=== PATIENT | male | born 1955 | race American Indian/Alaskan Native ===

== ENCOUNTER 2016-07-28 23:20 | Emergency (ER) | payer SELFPAY ==
[2016-07-29] MEDS ORDERED: BOOSTRIX IM ONE (05:27)
--- NOTE | 2016-07-29 05:31 | Emergency Department Report ---
HPI - General Chief Complaint: Puncture Wound Time Seen by Provider: 07/29/16 05:11 - HPI HPI: Patient is a 60-year-old male who presents to ED stating he stepped on a nail earlier today. Patient states he was in his house and did not see any other was turned upside down on a wood. Patient states he had shoes on nail went through his shoes and punctured her part of his bottom of his foot. Patient does not recall his last tetanus shot. Patient states he did not really see any bleeding but has a puncture wound from the nail. Patient denies fevers/chills/nausea signs vomiting/abdominal pain or any other problems. ED Past Medical Hx - Past Medical History Previous Medical History?: Yes - Surgical History Past Surgical History?: Yes ED Review of Systems ROS: Stated complaint: LT FOOT STEPPED ON NAIL Other details as noted in HPI Constitutional: denies: chills, fever Eyes: denies: eye pain, eye discharge, vision change ENT: denies: ear pain, throat pain Respiratory: denies: cough, shortness of breath, wheezing Cardiovascular: denies: chest pain, palpitations Endocrine: no symptoms reported Gastrointestinal: denies: abdominal pain, nausea, vomiting, diarrhea Genitourinary: denies: urgency, dysuria, frequency, discharge, testicular pain, testicular mass Musculoskeletal: denies: back pain, joint swelling, arthralgia Skin: denies: rash, lesions Neurological: denies: headache, weakness, paresthesias Psychiatric: denies: anxiety, depression Hematological/Lymphatic: denies: easy bleeding, easy bruising Physical Exam - Physical Exam Vital Signs: Vital Signs 07/28/16 23:32 Temperature 97.5 F L Pulse Rate 82 Respiratory 18 Rate Blood Pressure 182/111 [Right] O2 Sat by Pulse 98 Oximetry Physical Exam: GENERAL: Alert and oriented x3, no apparent distress, Normal Gait, atraumatic. HEAD: Head is normocephalic and a-traumatic. MOUTH:Mouth is well hydrated and without lesions.. Patent airways. NECK: Supple. Non edematous, No carotid bruits. No lymphadenopathy or thyromegaly. LUNGS: Symetrical with respiration, No wheezing, no rales or crackles, CTAB. HEART: S1, S2 present, regular rate and rhythm without murmur, no rubs, no gallops. ABDOMEN: No organomegaly was noted,Positive bowel sounds, soft, and non- distended. . Nontender to palpation on all Quadrants, NO CVA tenderness. EXTREMITIES/MUSCULOSKELETAL: No cyanosis, clubbing, rash, lesions or edema. Full ROM bilaterally. UE/LE Pulses 2+ bilaterally. LE and UE 5+ strength bilaterally. Mild puncture wound on the bottom of left lateral aspect of the foot. No bleeding and no erythema non-edematous, no foreign body seen or palpated NEUROLOGIC: No focal Deficit, Cranial nerves II through XII are grossly intact. No loss of sensation, PSYCHIATRIC: Mood is congruent with affect, denies suicidal or homicidal ideations. SKIN: Warm and dry, No lesions, No ulceration or induration present. ED Course Vital Signs 07/28/16 23:32 Temperature 97.5 F L Pulse Rate 82 Respiratory 18 Rate Blood Pressure 182/111 [Right] O2 Sat by Pulse 98 Oximetry ED Medical Decision Making - Medical Decision Making This 60-year-old male presents with puncture wound to the left foot. ED course: Patient received tetanus booster. Patient states he has no pain on his foot. Discussed with patient to follow up with primary care physician. Patient states he does not take blood pressure medication and has no history of hypertension Discussed with patient increased blood pressure, discussed to make sure to follow-up with primary care physician for blood pressure management management. Discussed chronic on control of blood pressure could've lead to stroke or worse. Patient received 200 mg of labetalol while in ED Blood pressure decrease during his ED stay. Blood pressure decreased to 162/103 Vital signs are stable. Patient is in no acute distress. She verbally states she understands and will follow-up Critical care attestation.: If time is entered above; I have spent that time in minutes in the direct care of this critically ill patient, excluding procedure time. ED Disposition Clinical Impression: Puncture wound of right foot excluding toes without complication Qualifiers: Encounter type: initial encounter Qualified Code(s): S91.331A - Puncture wound without foreign body, right foot, initial encounter Disposition: DISCHARGED TO HOME OR SELFCARE Is pt being admited?: No Does the pt Need Aspirin: No Condition: Stable Instructions: Puncture Wound (ED) Referrals: BORIS ALMENDAREZ MD [Primary Care Provider] - 3-5 Days NITA WAITE MD [Referring] - 3-5 Days MERNA SPRINGER MD [Referring] - 3-5 Days Forms: Work/School Release Form(ED) Time of Disposition: 05:33
[2016-07-29] MEDS ORDERED: NORMODYNE PO ONE (06:07)
[2016-07-29 07:02] VITALS: BP 136/95
== END 2016-07-29 07:11 | disposition home or self-care (01) ==
LOC: ED 23:20
DX: S91.331A Puncture wound without foreign body, right foot, initial encounter (principal); W45.0XXA Nail entering through skin, initial encounter; Y93.9 Activity, unspecified; Y99.9 Unspecified external cause status; Y92.89 Other specified places as the place of occurrence of the external cause
CPT/HCPCS: 90471; 90715

== ENCOUNTER 2016-11-01 11:37 | Emergency (ER) | payer SELFPAY ==
[2016-11-01] MEDS ORDERED: TORADOL IV ONE (15:06)
--- NOTE | 2016-11-01 15:14 | Emergency Department Report ---
ED General Adult HPI - General Chief complaint: Pain General Stated complaint: LOWER ABD PAIN/SWELLING Time Seen by Provider: 11/01/16 14:51 Source: patient Mode of arrival: Ambulatory Limitations: No Limitations - History of Present Illness Initial comments: "my hernia is flaring up alot pain in my groin Onset/Timin -: month(s) Location: abdomen, pelvis Radiation: abdomen Severity scale (0 -10): 5 Quality: sharp Consistency: constant Worsens with: none Associated Symptoms: malaise. denies: diaphoresis, fever/chills, headaches, loss of appetite, nausea/vomiting, rash, seizure, shortness of breath, weakness Treatments Prior to Arrival: none - Related Data Previous Rx's Medication Instructions Recorded Last Taken Type Labetalol [Normodyne TAB] 200 mg PO DAILY #40 tablet 07/29/16 Unknown Rx Acetaminophen/Codeine [Tylenol 1 tab PO Q8H PRN #15 tab 11/01/16 Unknown Rx /Codeine # 3 tab] Allergies Allergy/AdvReac Type Severity Reaction Status Date / Time No Known Allergies Allergy Verified 11/01/16 12:25 ED Review of Systems ROS: Stated complaint: LOWER ABD PAIN/SWELLING Other details as noted in HPI Constitutional: denies: chills, fever Eyes: denies: eye pain, eye discharge, vision change ENT: denies: ear pain, throat pain Respiratory: denies: cough, shortness of breath, wheezing Cardiovascular: denies: chest pain, palpitations Endocrine: no symptoms reported Gastrointestinal: abdominal pain. denies: nausea, vomiting, diarrhea, constipation, hematemesis, melena, hematochezia Genitourinary: denies: urgency, dysuria Musculoskeletal: denies: back pain, joint swelling, arthralgia Skin: denies: rash, lesions Neurological: denies: headache, weakness, paresthesias Psychiatric: denies: anxiety, depression Hematological/Lymphatic: denies: easy bleeding, easy bruising ED Past Medical Hx - Past Medical History Previous Medical History?: No - Surgical History Past Surgical History?: Yes Additional Surgical History: right hernia repair 10 yrs ago - Family History Family history: CAD/[place], hypertension - Social History Smoking Status: Current Some Day Smoker Substance Use Type: Alcohol - Medications Home Medications: Home Medications Medication Instructions Recorded Confirmed Last Taken Type Labetalol [Normodyne TAB] 200 mg PO DAILY #40 tablet 07/29/16 Unknown Rx Acetaminophen/Codeine [Tylenol 1 tab PO Q8H PRN #15 tab 11/01/16 Unknown Rx /Codeine # 3 tab] ED Physical Exam - General Limitations: No Limitations General appearance: alert, in no apparent distress - Head Head exam: Present: atraumatic, normocephalic - Eye Eye exam: Present: normal appearance - ENT ENT exam: Present: mucous membranes moist - Neck Neck exam: Present: normal inspection - Respiratory Respiratory exam: Present: normal lung sounds bilaterally. Absent: respiratory distress - Cardiovascular Cardiovascular Exam: Present: regular rate, normal rhythm. Absent: systolic murmur, diastolic murmur, rubs, gallop - GI/Abdominal GI/Abdominal exam: Present: soft, tenderness, normal bowel sounds, hernia (Left inquinal hernia non reducible , painful to palpation no erythema no bruit, ). Absent: distended, guarding, rebound, rigid, organomegaly, mass, bruit, pulsatile mass - Rectal Rectal exam: Present: deferred - exam: Present: normal inspection, circumcision. Absent: testicular tenderness, urethral discharge, scrotal swelling, vertical testicular lie External exam: Present: normal external exam. Absent: erythema, swelling, lesions, lacerations, ecchymosis, bleeding - Extremities Exam Extremities exam: Present: normal inspection - Back Exam Back exam: Present: normal inspection - Neurological Exam Neurological exam: Present: alert, oriented X3 - Psychiatric Psychiatric exam: Present: normal affect, normal mood - Skin Skin exam: Present: warm, dry, intact, normal color. Absent: rash ED Course Vital Signs 11/01/16 12:26 Temperature 98 F Pulse Rate 84 Respiratory 20 Rate Blood Pressure 140/89 O2 Sat by Pulse 100 Oximetry - Reevaluation(s) Reevaluation #1: repeat accucheck 78mg /dl will hold d50w, will feed if negative ct abd and pelvis pt is currently a/o x3 with nad no symptoms of hypoglycemia 11/01/16 17:37 Reevaluation #2: pt resting quitely nad , eating dinner at this time pt is a/ox 3 ambulatory gait steady pain resolved at this time per patient , pt will follow up with general surgery for evaluation of hernia Dr. Rain as directed , pt verbalized understanding and agreement with dischargre plan. 11/01/16 18:27 ED Medical Decision Making - Lab Data Result diagrams: 11/01/16 15:32 11/01/16 15:32 Laboratory Tests 11/01/16 11/01/16 11/01/16 15:32 15:32 15:50 WBC 9.5 RBC 4.41 Hgb 14.7 Hct 44.1 MCV 100 H MCH 34 H MCHC 33 RDW 12.1 L Plt Count 229 Lymph % (Auto) 24.7 Wilson % (Auto) 5.1 Eos % (Auto) 4.2 Baso % (Auto) 0.9 Lymph # 2.4 Wilson # 0.5 Eos # 0.4 Baso # 0.1 Seg Neutrophils % 65.1 Seg Neutrophils # 6.2 Sodium 142 Potassium 4.6 Chloride 102.8 Carbon Dioxide 25 Anion Gap 19 BUN 9 Creatinine 0.6 L Estimated GFR > 60 BUN/Creatinine Ratio 15.00 Glucose 48 L Calcium 9.1 Total Bilirubin 0.70 ALT 26 Alkaline Phosphatase 98 Total Protein 6.9 Albumin 4.1 Albumin/Globulin Ratio 1.5 Urine Color Yellow Urine Turbidity Clear Urine pH 5.0 Ur Specific [place] 1.023 Urine Protein <15 mg/dl Urine Glucose (UA) Neg Urine Ketones Tr Urine Blood Neg Urine Nitrite Neg Urine Bilirubin Neg Urine Urobilinogen 4.0 Ur Leukocyte Esterase Neg Urine WBC (Auto) < 1.0 Urine RBC (Auto) 1.0 U Epithel Cells (Auto) < 1.0 Hyaline Casts 1 Urine Mucus Few - Radiology Data Radiology results: report reviewed small left inguinal hernia not incarcerated - Medical Decision Making pt is a 61 y/o aam with hx of inguinal hernia right side presents for left inguinal hernia with increasing pain for past month pt endorse 7 /10 lower abdominal pain radiating to left groin, " it keep fall back down now and hurt alot more", exam: abd soft nontender no bruit no rebound no signs groin: left inguinal hernia nonreducible no bruit no thrill painful to palpation, there is no erythema no ecchymosis groin is not hot to touch, there is no fever chills or tachycardia noted to V/S plan: CT Abd and Pelvis with contrast r/o incarcerated hernia , if not infected or carcerated with referr to general surgery for evaluation and possible repair, Critical care attestation.: If time is entered above; I have spent that time in minutes in the direct care of this critically ill patient, excluding procedure time. ED Disposition Clinical Impression: Inguinal hernia Qualifiers: Obstruction and gangrene presence: without obstruction or gangrene Laterality: unilateral Recurrence: non-recurrent Qualified Code(s): K40.90 - Unilateral inguinal hernia, without obstruction or gangrene, not specified as recurrent Disposition: DC-01 TO HOME OR SELFCARE Is pt being admited?: No Does the pt Need Aspirin: No Condition: Good Instructions: Inguinal Hernia (ED) Prescriptions: Acetaminophen/Codeine [Tylenol /Codeine # 3 tab] 1 tab PO Q8H PRN #15 tab PRN Reason: Pain , Severe (7-10) Referrals: PRIMARY CARE, [Primary Care Provider] - 3-5 Days ANA PAULA RAIN MD [Staff Physician] - 3-5 Days Forms: Work/School Release Form(ED) Time of Disposition: 18:34
[2016-11-01 16:01] LABS: Bilirubin,Urine NEG (Negative); Blood,Urine NEG (Negative); Ketones,Urine TR mg/dL (Negative); Leukocyte Esterase,Urine NEG (Negative); Mucus,Urine FEW /HPF; Nitrite,Urine NEG (Negative); Protein,Urine <15 mg/dL mg/dL (Negative); WBC,Urine < 1.0 /HPF (0.0-6.0)
[2016-11-01 16:04] LABS: Basophils % (Auto) 0.9 % (0.0-1.8); Eosinophils % (Auto) 4.2 % (0.0-4.3); Hematocrit 44.1 % (35.5-45.6); Hemoglobin 14.7 gm/dl (11.8-15.2); Mean Corpuscular HGB Conc 33 % (32-34); Mean Corpuscular Hemoglobin 34 pg (28-32); Mean Corpuscular Volume 100 fl (84-94); Platelet Count 229 K/mm3 (140-440); Red Blood Count 4.41 M/mm3 (3.65-5.03); Red Cell Distribution Width 12.1 % (13.2-15.2); White Blood Count 9.5 K/mm3 (4.5-11.0)
[2016-11-01 16:16] LABS: Alanine Aminotransferase 26 units/L (7-56); Albumin 4.1 g/dL (3.9-5); Albumin/Globulin Ratio 1.5 %; Alkaline Phosphatase 98 units/L (35-129); Anion Gap 19 mmol/L; Blood Urea Nitrogen 9 mg/dL (9-20); Calcium 9.1 mg/dL (8.4-10.2); Carbon Dioxide 25 mmol/L (22-30); Chloride 102.8 mmol/L (98-107); Glucose 48 mg/dL (75-100); Potassium 4.6 mmol/L (3.6-5.0); Sodium 142 mmol/L (137-145); Total Protein 6.9 g/dL (6.3-8.2)
[2016-11-01] MEDS ORDERED: D50W (25GM) IV ONE (17:25)
[2016-11-01] MEDS ORDERED: NACL 0.9% 1000 ML 1,000 ML IV ONE (17:25)
--- NOTE | 2016-11-01 18:21 | Cat Scan Report ---
FINAL REPORT PROCEDURE: CT ABDOMEN PELVIS W CON TECHNIQUE: Computerized axial tomography of the abdomen and pelvis was performed after the IV injection of iodinated nonionic contrast. HISTORY: Hernia pain Left inguinal COMPARISON: No prior studies are available for comparison. FINDINGS: Mild changes of COPD are seen in the lung bases. The spleen and liver appear normal. The gallbladder and pancreas display no abnormalities. The adrenal glands and abdominal aorta are normal in size. No renal abnormality is seen. Normal appendix is seen. Bladder appears normal. Prostate gland measures 4.6 x 6.2 x 4.7 cm. There is a tiny left inguinal hernia that contains fat. No free pelvic fluid is seen. There is no evidence of bowel obstruction. In the subcutaneous fat, adjacent to the right side of the base of the penis, there is a 1.2 cm cyst may be a sebaceous cyst. There is moderate spondylosis in the lower lumbar spine. Likely diffuse disc bulge is present at L3-4, also. IMPRESSION: Tiny left inguinal hernia is seen containing fat.
[2016-11-01 18:46] VITALS: BP 127/78
== END 2016-11-01 18:45 | disposition home or self-care (01) ==
LOC: ED 11:37
DX: K40.90 Unilateral inguinal hernia, without obstruction or gangrene, not specified as recurrent (principal); I10 Essential (primary) hypertension; I25.10 Atherosclerotic heart disease of native coronary artery without angina pectoris; I25.2 Old myocardial infarction; F17.210 Nicotine dependence, cigarettes, uncomplicated
CPT/HCPCS: 36415; 74177; 80053; 81001; 82962; 85025; 96361; 96374; 99284; J1885; J7030; Q9967